=== PATIENT | female | born 1980 | race Two or more races ===

== ENCOUNTER 2024-05-17 09:00 | Outpatient (RCR) | payer MEDICAID, SELFPAY ==
--- NOTE | 2024-05-03 08:18 | PT.OIERPT ---
PT OP Initial Eval Patient Information Outpatient Physical Therapy Treatment Date: 05/03/24 Visit Reasons: Low back pain Medical Diagnosis: Z47.89; M54.51 Treatment Dx #1: Back Pain Treatment Dx #2: L/S Mobility Deficits Start of Care: 05/03/24 Date of Onset: Dec 2023 Smoking Status Smoking Status: Never smoker Initial Assessment Subjective: Pt is a 43 y/o female s/p lumbar decompression by Dr Marks in Dec 2023. Pt still has pain (3/10) with stiffness. Pt has limitation with prolonged walking, standing, lifting, chores, self care, sleeping, and performing recreational activities. Objective: L/S AROM: all motions are 50% towards end range in all plane Hip PROM: all motions are WFL except IR Hip MMTs: grossly 3+/5 Muscle Length: tight Hs Assessment: Pt demonstrate back pain with mobility deficits s/p surgery leading to difficulty with ADLs. Pt will benefit from physical therapy to increase ROM, strength, and work on overall mobility. Short Term and [employer] Goals 1) Increase L/S AROM all motions are WNL in 6 weeks to be able to perform chores 2) Decrease back pain to 2/10 in 6 wks to be able to sit and stand more than 30 mins 3) Increase core strength WFL in 6 wks to be able to perform recreational activities 4) Increase hip MMTs grossly to 4-/5 in 6 wks to be able to walk more than 30 mins 5) Indep with HEP Treatment Plan 1) Manual Therapy 2) Therapeutic Activities 3) Therapeutic Exercises 4) Modalities (ice, heat) 5) Balance Training Frequency and Duration: 2 x wk for 6 wks Certification Dates: 05/03/24 to 08/03/24 Procedure Charges OP PT Eval Mod Complex 30 minutes: Yes
--- NOTE | 2024-05-06 09:13 | PT.ODAYNRPT ---
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 Pt also mentioned that she uses treadmill and stationary bike at home. Objective: Please see flow sheet for ther ex list. Assessment: Verbal and tactile cues to maintain spine in neutral during wall planks exercise, pt improved technique but required reminder would loose form. Plan: Assess response to treatment. Length of Time (minutes) of Treatment: 30 Minutes Procedure Charges Therapeutic Exercise 30 minutes: Yes
--- NOTE | 2024-05-17 13:09 | PT.ODAYNRPT ---
PT Outpatient Daily Note OP Daily Note Outpatient Physical Therapy Treatment Date: 05/17/24 Visit Reasons: Low back pain Subjective: Pt's back sore after last session. No new concerns to report. Objective: Please see flow chart for list of ther ex performed Assessment: added heat with supine ther ex; patient tolerate exercises well. Plan: Continue with PT Length of Time (minutes) of Treatment: 30 Minutes Procedure Charges Therapeutic Exercise 30 minutes: Yes
== END 2024-05-17 23:59 | disposition home or self-care (01) ==
LOC: CPTX 09:00
PROVIDERS: PCP Nurse Practitioner Primary Care; Referring Provider Orthopaedic Surgery Orthopaedic Surgery of the Spine; Visit Provider Orthopaedic Surgery Orthopaedic Surgery of the Spine
DX: M54.51 Vertebrogenic low back pain (principal); R26.2 Difficulty in walking, not elsewhere classified; Z98.890 Other specified postprocedural states
CPT/HCPCS: 97110; 97162

== ENCOUNTER 2024-06-09 08:30 | Outpatient (RCR) | payer MEDICAID, SELFPAY ==
--- NOTE | 2024-05-24 10:37 | PT.ODAYNRPT ---
PT Outpatient Daily Note OP Daily Note Outpatient Physical Therapy Treatment Date: 05/24/24 Visit Reasons: LOW BACK PAIN Subjective: Pt's back is a little better and less stiffness. Pt likes the heat with exercises Objective: Please see flow chart for list of ther ex performed Assessment: progressing with isometric exercises; supine heat continues to help patient tolerate exercises Plan: Continue with PT Length of Time (minutes) of Treatment: 30 Minutes Procedure Charges Therapeutic Exercise 30 minutes: Yes
--- NOTE | 2024-05-31 11:46 | PT.ODAYNRPT ---
PT Outpatient Daily Note OP Daily Note Outpatient Physical Therapy Treatment Date: 05/31/24 Visit Reasons: LOW BACK PAIN Subjective: Pt still has lower back stiffness, however, no pain in the legs lately. Pt felt comfortable with exercises done with DIRECTOR OF EMERGENCY NURSING last session. Objective: Please see flow chart for list of ther ex performed Assessment: added more core exercises with good tolerance. nerve floss withheld today since patient has not had any radicular pain down the legs lately Plan: Continue with PT Length of Time (minutes) of Treatment: 30 Minutes Procedure Charges Therapeutic Exercise 30 minutes: Yes
--- NOTE | 2024-06-09 09:05 | PT.ODAYNRPT ---
PT Outpatient Daily Note OP Daily Note Outpatient Physical Therapy Treatment Date: 06/09/24 Visit Reasons: LOW BACK PAIN Subjective: Pt's back is much better. Pt still notice some stiffness intermittently. Objective: Please see flow chart for list of ther ex performed Assessment: tolerate exercises with minimal pain Plan: Continue with PT Length of Time (minutes) of Treatment: 30 Minutes Procedure Charges Therapeutic Exercise 30 minutes: Yes
== END 2024-06-16 23:59 | disposition home or self-care (01) ==
LOC: CPTX 08:30
PROVIDERS: PCP Orthopaedic Surgery Orthopaedic Surgery of the Spine; Referring Provider Orthopaedic Surgery Orthopaedic Surgery of the Spine; Visit Provider Orthopaedic Surgery Orthopaedic Surgery of the Spine
DX: M54.51 Vertebrogenic low back pain (principal); R26.2 Difficulty in walking, not elsewhere classified
CPT/HCPCS: 97110

== ENCOUNTER → 2024-06-09 | Outpatient (CLI) | payer MEDICAID, SELFPAY ==
--- NOTE | 2024-06-09 09:43 | XR_ITS ---
Examination: Cervical spine 3 views Technique one AP lateral coned AP odontoid cervical spine 3 views Exam date and time: June 09, 2024 10:17 AM INDICATIONS: Neck pain radiating to the right arm beginning 2 months ago. FINDINGS: Adequate alignment cervical vertebral bodies. No cervical fracture. Intact odontoid. Early posterior osteophyte formation C6-C7 IMPRESSION: Early posterior osteophyte formation C6-C7 As clinically warranted, MRI cervical spine without contrast follow-up would best assess for soft tissue disc protrusion producing radicular right arm symptoms
== END | disposition home or self-care (01) ==
LOC: COPL 09:33 → CDIM 06-14 14:28
PROVIDERS: PCP Nurse Practitioner Primary Care; Referring Provider Nurse Practitioner Primary Care; Visit Provider Nurse Practitioner Primary Care
DX: M25.78 Osteophyte, vertebrae (principal)
CPT/HCPCS: 72040

== ENCOUNTER → 2024-10-15 | Outpatient (CLI) | payer MEDICAID, SELFPAY ==
--- NOTE | 2024-10-15 09:15 | XR_ITS ---
Examination: Screening digital mammography, bilateral Computer aided detection 3-D breast Tomosynthesis, bilateral Date and time of exam: 10/15/2024, 8:42 AM Comparisons: February 2021 through June 2023 Indications: Screening Technique: Nonmagnified MLO, CC views of the breasts to been obtained, reconstructed from 3-D Tomosynthesis images. R2 computer aided detection program utilized for evaluation of suspicious masses and/or abnormal calcifications. 3-D Tomosynthesis images obtained. Technologist: Findings: There are scattered areas of fibroglandular density. No evidence of abnormal masses or suspicious calcifications. Bilateral subpectoral saline implants appear intact Impression:
== END | disposition home or self-care (01) ==
LOC: CDIM 08:45
PROVIDERS: Referring Provider Nurse Practitioner Primary Care; Visit Provider Nurse Practitioner Primary Care
DX: Z12.31 Encounter for screening mammogram for malignant neoplasm of breast (principal); R92.323 Mammographic fibroglandular density, bilateral breasts
CPT/HCPCS: 77063; 77067